=== PATIENT | female | born 1990 | race Caucasian/White ===

== ENCOUNTER 2016-05-21 16:44 | Outpatient (CLI) | payer OTHER ==
[~2016-05-21 16:44] MED LIST: ACETAMINOPHEN500 MG PO; AMOXICILLIN500 M1 PO; KEFLEX500 MG PO; MIRALAX17 GM PO; MOTRIN600 MG PO; NOHOMEMEDS; PYRIDIUM200 MG PO; TYLENOL WITH C1 EACH PO; VIBRAMYCIN100 MG PO; WELLBUTRIN XL150 MG PO
[2016-05-21 17:08] VITALS: BP 134/77
[2016-05-21] MEDS ORDERED: PRENATAL TABLE1 EAC3 PO (17:43)
[2016-05-21] MEDS ORDERED: subutex PO (17:51)
[2016-05-21 18:27] LABS: COLOR YELLOW ((YELLOW)); GLUCOSE (STRIP) NEGATIVE; LEUKOCYTES NEGATIVE; NITRITE POSITIVE; PROTEIN (STRIP) TRACE; SPECIFIC GRAVITY 1.002 (1.000-1.030)
[2016-05-21 18:28] LABS: ADD MIUA? YES; BILIRUBIN NEGATIVE; BLOOD SMALL; KETONES NEGATIVE; UROBILINOGEN 0.2 MG/DL (0.2-1.0)
[2016-05-21 18:53] LABS: AMPHETAMINES QUANT VALUE 0 NG/ML; BARBITUATES QUANT VALUE 0 NG/ML; BENZODIAZEPINES QUANT VALUE 0 NG/ML; BENZODIAZEPINES, URINE SCREEN Negative (200 ng/mL); MARIJUANA QUANT VALUE 0 NG/ML; OPIATES QUANTITATIVE VALUE 0 NG/ML; PHENCYCLIDINE QUANT VALUE 0 NG/ML
[2016-05-21 19:01] LABS: BACTERIA 3+ /HPF; CASTS NONE SEEN /LPF; CRYSTALS NONE SEEN; EPITHELIAL CELLS RARE /HPF; MUCUS NONE SEEN /LPF; RED BLOOD CELLS RARE /HPF (0-5); WHITE BLOOD CELLS NONE SEEN /HPF (0-5)
[2016-05-21] MEDS ORDERED: MACROBID100 MG PO (19:37)
== END 2016-05-21 19:50 | disposition home or self-care (01) ==
LOC: LDRP-OP 16:44 → 2WEST 16:45 → LDRP-OP 08-28 12:10
PROVIDERS: Advanced Practice Midwife
DX: O99.89 Other specified diseases and conditions complicating pregnancy, childbirth and the puerperium (principal); Z3A.30 30 weeks gestation of pregnancy
CPT/HCPCS: 59025; 81003; 87086; G0378

== ENCOUNTER 2016-07-23 07:38 | Inpatient (IN) | payer OTHER ==
[~2016-07-23] VITALS: Ht 167.6 cm; Wt 80.3 kg
[2016-07-23] VITALS (22 sets, daily range): BP systolic 106–138; BP diastolic 55–92
[~2016-07-23 07:38] MED LIST changes: +MACROBID100 MG PO; +PRENATAL TABLE1 EAC3 PO; +subutex PO
[2016-07-23 08:49] LABS: EOSINOPHIL (%) 0.7 % (0-5); EOSINOPHIL COUNT 0.1 K/uL (0-0.3); HEMATOCRIT 35.1 % (36.0-46.0); IMMATURE GRANULOCYTE (%) 0.7 % (0.0-0.7); IMMATURE GRANULOCYTE COUNT 0.1 K/uL; INSTRUMENT ABS NEUTROPHIL CT 7.3 K/uL; MCH 29.8 PG (29.0-34.0); MCHC 33.9 G/DL (30.0-36.0); MCV 87.8 FL (83-99); MEAN PLAT.VOLUME 9.9 uM^3 (9.5-12.4); MONOCYTE (%) 6.3 % (3-12); MONOCYTE COUNT 0.6 K/uL (0-0.8); NEUTROPHIL (%) 72.6 % (45-76); NEUTROPHIL COUNT 7.3 K/uL (1.8-6.4); PLATELET COUNT 289 K/uL (156-360); RBC DIS.WIDTH-CV 12.5 % (11.8-14.6); RBC DIS.WIDTH-SD 39.7 % (39-53); WHITE BLOOD COUNT 10.1 K/uL (4.1-10.2)
[2016-07-23 09:19] LABS: AMPHETAMINES QUANT VALUE 0 NG/ML; BARBITUATES QUANT VALUE 0 NG/ML; BENZODIAZEPINES QUANT VALUE 0 NG/ML; BENZODIAZEPINES, URINE SCREEN Negative (200 ng/mL); MARIJUANA QUANT VALUE 0 NG/ML; OPIATES QUANTITATIVE VALUE 0 NG/ML; PHENCYCLIDINE QUANT VALUE 0 NG/ML
[2016-07-24 07:23] LABS: EOSINOPHIL (%) 0.4 % (0-5); EOSINOPHIL COUNT 0.1 K/uL (0-0.3); HEMATOCRIT 32.5 % (36.0-46.0); IMMATURE GRANULOCYTE (%) 0.7 % (0.0-0.7); IMMATURE GRANULOCYTE COUNT 0.1 K/uL; INSTRUMENT ABS NEUTROPHIL CT 10.6 K/uL; LYMPHOCYTE COUNT 3.1 K/uL (1.0-2.8); MCHC 34.2 G/DL (30.0-36.0); MCV 87.8 FL (83-99); MEAN PLAT.VOLUME 10.1 uM^3 (9.5-12.4); MONOCYTE COUNT 0.9 K/uL (0-0.8); NEUTROPHIL (%) 71.6 % (45-76); NEUTROPHIL COUNT 10.6 K/uL (1.8-6.4); PLATELET COUNT 269 K/uL (156-360); RBC DIS.WIDTH-CV 12.5 % (11.8-14.6); RBC DIS.WIDTH-SD 39.9 % (39-53); WHITE BLOOD COUNT 14.9 K/uL (4.1-10.2)
[2016-07-24 07:28] VITALS: BP 116/66
[2016-07-24 15:00] VITALS: BP 124/83
[2016-07-24 23:00] VITALS: BP 134/94
[2016-07-24 23:15] VITALS: BP 122/74
[2016-07-25 07:31] VITALS: BP 102/64
[2016-07-25 16:01] VITALS: BP 129/71
== END 2016-07-25 17:59 | disposition home or self-care (01) | DRG 775 ==
LOC: LDRP-OP 07:38 → 2WEST 07:39 → LDRP-OP 08-28 21:45
PROVIDERS: Advanced Practice Midwife
PROC: 10907ZC Drainage of Amniotic Fluid, Therapeutic from Products of Conception, Via Natural or Artificial Opening (ICD-10-PCS; principal; 2016-07-23)
PROC: 10E0XZZ Delivery of Products of Conception, External Approach (ICD-10-PCS; principal; 2016-07-23)
PROC: 00HU33Z Insertion of Infusion Device into Spinal Canal, Percutaneous Approach (ICD-10-PCS; 2016-07-23)
PROC: 3E0R3CZ (ICD-10-PCS; 2016-07-23)
PROC: 3E033VJ Introduction of Other Hormone into Peripheral Vein, Percutaneous Approach (ICD-10-PCS; 2016-07-23)
DX: O99.324 Drug use complicating childbirth (principal); F11.20 Opioid dependence, uncomplicated; F14.90 Cocaine use, unspecified, uncomplicated; O99.334 Smoking (tobacco) complicating childbirth; F17.210 Nicotine dependence, cigarettes, uncomplicated; O99.344 Other mental disorders complicating childbirth; F32.9 Major depressive disorder, single episode, unspecified; F41.9 Anxiety disorder, unspecified; O99.824 Streptococcus B carrier state complicating childbirth; O99.214 Obesity complicating childbirth; E66.3 Overweight; Z68.27 Body mass index [BMI] 27.0-27.9, adult; Z3A.39 39 weeks gestation of pregnancy; Z37.0 Single live birth
CPT/HCPCS: 80306 90; 85025; C1755; J0571; J2540; J3010; J7120

== ENCOUNTER 2017-08-18 07:44 | Emergency (ER) | payer OTHER ==
[~2017-08-18] VITALS: Ht 167.6 cm; Wt 69.9 kg
[2017-08-18] MEDS ORDERED: AMOXICILLIN500 MG PO (08:27)
[2017-08-18] MEDS ORDERED: TYLENOL WITH C1 EACH PO (08:27)
[2017-08-18 08:42] VITALS: BP 143/84
== END 2017-08-18 08:44 | disposition home or self-care (01) ==
LOC: EME 07:44
DX: K02.9 Dental caries, unspecified (principal)
CPT/HCPCS: 99281; 99283

== ENCOUNTER 2017-09-17 17:42 | Emergency (ER) | payer OTHER ==
[~2017-09-17] VITALS: Ht 167.6 cm; Wt 76.5 kg
[~2017-09-17 17:42] MED LIST changes: +AMOXICILLIN500 MG PO
[2017-09-17 18:10] LABS: HEMOGLOBIN 11.6 G/DL (11.9-15.5); MCH 28.4 PG (29.0-34.0); MCHC 33.1 G/DL (30.0-36.0); MCV 85.8 FL (83-99); PLATELET COUNT 308 K/uL (156-360); RBC DIS.WIDTH-SD 43.8 % (39-53); RED BLOOD COUNT 4.08 M/uL (3.80-5.20); WHITE BLOOD COUNT 9.8 K/uL (4.1-10.2)
[2017-09-17 18:18] LABS: CHLORIDE 107 mEq/L (99-109); POTASSIUM 3.5 mEq/L (3.7-5.4); SODIUM 141 mEq/L (136-147)
[2017-09-17 18:20] LABS: GLUCOSE 80 mg/dL (70-99); TOTAL PROTEIN 7.3 g/dL (6.4-8.3)
[2017-09-17 18:22] LABS: TOTAL BILIRUBIN 0.2 mg/dL (0.0-1.0)
[2017-09-17 18:23] LABS: ALKALINE PHOSPHATASE 78 IU/L (3-129); SERUM ETHYL ALCOHOL < 10 mg/dL
[2017-09-17 18:24] LABS: CREATININE 0.7 mg/dL (0.6-1.3); GFR ESTIMATE (CALCULATED) > 59 mL/min/
[2017-09-17 18:25] LABS: AST (GOT) 31 IU/L (2-34); UREA NITROGEN (BUN) 9 mg/dL (9-23)
[2017-09-17 18:27] LABS: ALT (GPT) 15 IU/L (3-49)
[2017-09-17 18:32] LABS: QUANTITATIVE HCG < 4.0 MIU/ML
[2017-09-17 19:39] LABS: APPEARANCE SL.HAZY ((CLEAR)); BILIRUBIN NEGATIVE; BLOOD MODERATE; COLOR YELLOW ((YELLOW)); GLUCOSE (STRIP) NEGATIVE; KETONES NEGATIVE; LEUKOCYTES MODERATE; NITRITE POSITIVE; PROTEIN (STRIP) 30; UROBILINOGEN 0.2 MG/DL (0.2-1.0)
[2017-09-17 19:47] LABS: BACTERIA 1+ /HPF; EPITHELIAL CELLS 1+ /HPF; MUCUS TRACE /LPF; RED BLOOD CELLS TNTC /HPF (0-5); WHITE BLOOD CELLS 15-20 /HPF (0-5)
[2017-09-17 19:49] LABS: AMPHETAMINE NEGATIVE (500 ng/mL); BARBITURATES NEGATIVE (200 ng/mL); BENZODIAZEPINES NEGATIVE (150 ng/mL); METHADONE NEGATIVE (200 ng/mL); METHAMPHETAMINE NEGATIVE (500 ng/mL); OXYCODONE NEGATIVE (100 ng/mL); PHENCYCLIDINE NEGATIVE (25 ng/mL); THC CANNABINOIDS NEGATIVE (50 ng/mL); TRICYCLIC ANTIDEPRESSANTS NEGATIVE (300 ng/mL)
[2017-09-17 19:50] LABS: BUPRENORPHINE NEGATIVE (10 ng/mL); COCAINE PRESUMPTIVE POSITIVE (150 ng/mL); OPIATES (MORPHINE) PRESUMPTIVE POSITIVE (100 ng/mL); PROPOXYPHENE NEGATIVE (300 ng/mL)
[2017-09-17] MEDS ORDERED: BACTRIM,SEPT1 TABLET PO (21:51)
[2017-09-17 21:58] VITALS: BP 131/89
== END 2017-09-17 22:00 | disposition home or self-care (01) ==
LOC: EME 17:42
PROVIDERS: Emergency Medicine
DX: T50.901A Poisoning by unspecified drugs, medicaments and biological substances, accidental (unintentional), initial encounter (principal); F32.9 Major depressive disorder, single episode, unspecified; N39.0 Urinary tract infection, site not specified
CPT/HCPCS: 80053; 81003; 84702; 84999; 85027; 90837; 99281; 99285; G0480